=== PATIENT | female | born 1990 ===

== ENCOUNTER 2017-08-08 08:50 | Emergency (ER) | payer MEDICAID, OTHER ==
[2017-08-08 08:56] VITALS: BP 111/72; PULSE 133; O2SAT 99
[2017-08-08 08:57] VITALS: BMI 33.5
--- NOTE | 2017-08-08 09:08 | ED PDOC ---
HPI: CCC, URI, Sore Throat Time Seen by Provider: 08/08/17 09:01 History Per: Patient (Sore throat fever and body aches since yesterday. No cough. Pain on swallowing) Onset/Duration Of Symptoms: Days (2) Associated Symptoms: Fever, Sore Throat. denies: Cough Severity: Moderate Pain Scale Rating Of: 3 Past Medical History Vital Signs: Last Vital Signs Temp 100.1 F H 08/08/17 08:55 Pulse 133 H 08/08/17 08:55 Resp BP 111/72 08/08/17 08:55 Pulse Ox 99 08/08/17 08:55 - Medical History PMH: Gall Bladder Disease (gallstones) Denies: HIV, Chronic Kidney Disease - Family History Family History: States: Unknown Family Hx - Home Medications Home Medications: Ambulatory Orders Medication Instructions Recorded Ibuprofen [Motrin Tab] 600 mg PO Q6 PRN 07/28/16 Ondansetron ODT [Zofran ODT] 4 mg PO PRN PRN 07/28/16 oxyCODONE/Acetaminophen [Percocet 1 tab PO Q4 PRN #20 tab 08/01/16 5/325 mg Tab] Azithromycin [Zithromax] 250 mg PO DAILY #6 tab 08/08/17 Naproxen [Naprosyn] 500 mg PO Q12H #20 tab 08/08/17 - Allergies Allergies/Adverse Reactions: Allergies Allergy/AdvReac Type Severity Reaction Status Date / Time No Known Allergies Allergy Verified 07/27/16 02:49 Review of Systems Constitutional: Positive for: Fever ENT: Positive for: Throat Pain Respiratory: Negative for: Cough Physical Exam - Physical Exam Appears: Positive for: Non-toxic, No Acute Distress Skin: Positive for: Normal Color, Warm, DRY ENT: Positive for: Pharyngeal Erythema, Tonsillar Swelling. Negative for: Tonsillar Exudate Neck: Positive for: Normal, Supple Cardiovascular/Chest: Positive for: Regular Rate, Rhythm Respiratory: Positive for: CNT, Normal Breath Sounds - ECG O2 Sat by Pulse Oximetry: 99 Disposition - Clinical Impression Clinical Impression: Tonsillitis - Patient ED Disposition Is Patient to be Admitted: No Counseled Patient/Family Regarding: Studies Performed, Diagnosis, Need For Followup, Rx Given - Disposition Referrals: [facility] [Outside] Disposition: Routine/Home Disposition Time: 09:07 Condition: FAIR Prescriptions: Azithromycin [Zithromax] 250 mg PO DAILY #6 tab Naproxen [Naprosyn] 500 mg PO Q12H #20 tab Instructions: Tonsillitis (ED) Print Language: [place]
[2017-08-08 10:07] VITALS: TEMP 98.1
== END 2017-08-08 10:15 | disposition home or self-care (01) ==
LOC: H.ER 08:50
DX: J03.90 Acute tonsillitis, unspecified (principal)